=== PATIENT | male | born 1980 | race Caucasian/White ===

== ENCOUNTER 2016-11-03 03:39 | Emergency (ER) | payer OTHER ==
[~2016-11-03] VITALS: Ht 170.2 cm; Wt 81.8 kg
[~2016-11-03 03:39] MED LIST: BACL10TA PO; BUPR1FIL3 SL; IBUP800T28 PO; OXYC-474 PO; [UNRECOGNIZED DRUG - OTHER]
[2016-11-03 03:43] VITALS: BP 144/77; PULSE 86; RESP 24; O2SAT 99
[2016-11-03 03:56] VITALS: BP 137/69; PULSE 84; RESP 11; O2SAT 96
[2016-11-03 04:29] LABS: BASOPHILS % (AUTO) 0.3 % (0-3); EOSINOPHILS % (AUTO) 3.3 % (0-5); MONOCYTES % (AUTO) 10.1 % (4-12); Mean Corpuscular Hemoglobin 31.2 pg (27.0-35.0); Mean Corpuscular Volume 90.4 fL (81-100); NEUTROPHILS % (AUTO) 65.8 % (40-74); Platelet Count 168 bil/L (150-400)
[2016-11-03 04:57] LABS: Magnesium 1.8 mg/dL (1.6-2.6)
[2016-11-03] MEDS ORDERED: HYDROmorphone 1 mg/mL Inj IVPUSH ONE (05:00)
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
[2016-11-03] MEDS ORDERED: Ondansetron 2 mg/mL 2 mL Inj ONE (05:27)
[2016-11-03] MEDS ORDERED: Ondansetron 2 mg/mL 2 mL Inj IVPUSH ONE (05:30)
[2016-11-03 05:35] VITALS: BP 128/58; PULSE 62; RESP 18; O2SAT 97
[2016-11-03] MEDS ORDERED: 0.9% Sodium Chloride 1,000 ML IV ONE (05:45)
[2016-11-03 06:09] LABS: APPEARANCE,URINE CLOUDY (CLEAR,HAZY); COLOR,URINE BLOODY (YELLOW); OCCULT BLOOD,URINE LARGE (NEGATIVE); UROBILINOGEN,URINE NORMAL (NORMAL)
[2016-11-03 06:14] LABS: ICTOTEST,URINE POSITIVE (Negative)
[2016-11-03] MEDS ORDERED: HYDROmorphone 1 mg/mL Inj IVPUSH PRN (06:15)
[2016-11-03] MEDS ORDERED: TAMS0.4C29 PO (06:46)
[2016-11-03] MEDS ORDERED: NAPR500T5 PO (06:46)
[2016-11-03 07:04] VITALS: BP 131/70; PULSE 64; RESP 22; O2SAT 98
--- NOTE | 2016-11-03 11:10 | DRSVH ---
PROCEDURE: CT ABDOMEN AND PELVIS WITH CONTRAST ([id number]) INDICATIONS: 36 year-old male with left flank and testicular pain, with history of kidney stones. TECHNIQUE: After the administration of intravenous contrast, 5 mm thick sections acquired from the diaphragm to the symphysis. 5 mm coronal and sagittal reformats were acquired. For radiation dose reduction, the following was used: automated exposure control, adjustment of mA and/or kV according to patient siz e. COMPARISON: [facility], CT, ABD/PELVIS W&WO CON ([facility]AMED [facility] 09/01/2011, 16:06. [facility], CT, KUB - CT (FORM[facility] NAMED [facility]), 10/04/2010, 23:00. FINDINGS: Preliminary interpretation rendered by [facility]. Image quality: Excellent. ABDOMEN: Lung bases: Lung bases are clear. Heart size is normal. Solid organs: Liver and spleen are normal in size and enhancement. Gallbladder is surgically absent . Biliary system is non dilated. Pancreas enhances normally. No adrenal nodules. There is asymmetr ic mild left hydroureteronephrosis, left renal enlargement and perinephric inflammatory fat stranding . On axial image 68, 5 x 5 x 7 mm distal left ureteral stone is situated adjacent to the ureterovesic al junction. On axial image 36, an additional 5 x 4 x 4 mm proximal left ureteral stone is also prese nt. Additional bilateral nonobstructing renal stones are visualized, measuring 4 mm on the left and 3 mm on the right. Peritoneum and bowel: Bowel loops demonstrate normal wall thickness and caliber. No free fluid or a ir. Nodes and vessels: No retroperitoneal or mesenteric adenopathy by size criteria. Aorta and inferior vena cava are normal in size. Miscellaneous: No ventral hernias. PELVIS: Genitourinary: Bladder wall thickness is normal. Prostate gland is normal in size. Miscellaneous: No inguinal hernias or adenopathy. Bones: No suspicious bony lesions. Nonacute healed left pubic and ischial rami fractures are presen t. No vertebral body compression fractures. There is lower thoracic and lower lumbar spine disc dege neration. IMPRESSION: 1. Left hydroureteronephrosis and perinephric inflammatory fat stranding, secondary to 7 mm distal le ft ureteral stone, as well as 5 mm proximal left ureteral stone. 2. Bilateral additional nonobstructing renal stones, measuring up to 4 mm on the left and 3 mm on the right. 3. Nonacute healed left obturator ring fractures again noted. No significant discrepancy with preliminary [facility] report. Dictated by: Anthony Valentin M.D. on 11/03/2016 at 10:58 Approved by: Anthony Valentin M.D. on 11/03/2016 at 11:09
== END 2016-11-03 07:05 | disposition home or self-care (01) ==
LOC: SED 03:39
DX: N20.0 Calculus of kidney (principal); Z88.8 Allergy status to other drugs, medicaments and biological substances
CPT/HCPCS: 36415; 51798; 74177; 80053; 81000; 83690; 83735; 85025; 87086; 96374; 96375; 96376; 99285; J1170; J1885; J7030; Q9967